=== PATIENT | male | born 1965 | race Caucasian/White ===

== ENCOUNTER 2017-06-10 14:42 | Emergency (ER) | payer OTHER ==
[~2017-06-10] VITALS: Ht 172.7 cm; Wt 85.0 kg
[~2017-06-10 14:42] MED LIST: Z.0.NO CURRENT MEDS
[2017-06-10 15:13] VITALS: BP 157/99; PULSE 72; RESP 18; TEMP 98.5; O2SAT 97
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
[2017-06-10] MEDS ORDERED: CYCL10TA PO (16:00)
[2017-06-10] MEDS ORDERED: IBUP1TAB7 PO (16:00)
[2017-06-10] MEDS ORDERED: MAPA500T PO (16:00)
[2017-06-10] MEDS ORDERED: KETOROLAC TROMETHAMINE 60 MG/2 ML (IM) VIAL IM ONE (16:00)
== END 2017-06-10 16:45 | disposition home or self-care (01) ==
LOC: PHEFT 14:42
DX: M54.9 Dorsalgia, unspecified (principal); V89.2XXA Person injured in unspecified motor-vehicle accident, traffic, initial encounter
CPT/HCPCS: 96372; 99284; J1885